=== PATIENT | male | born 1990 | race African-American/Black ===

== ENCOUNTER 2022-09-11 08:24 | Emergency (ER) | payer OTHER ==
[~2022-09-11] VITALS: Ht 170.2 cm; Wt 63.0 kg
[2022-09-11 09:25] VITALS: BP 149/99
== END 2022-09-11 09:29 | disposition home or self-care (01) ==
LOC: ER 08:24
DX: R53.1 Weakness (principal)
CPT/HCPCS: 93005; 99283